=== PATIENT | female | born 2000 | race Caucasian/White ===

== ENCOUNTER 2018-03-11 07:02 | Emergency (ER) | payer MEDICAID ==
[2018-03-11] MEDS ORDERED: Ibuprofen 600 MG Tab PO ONE (07:44)
--- NOTE | 2018-03-11 07:53 | EDM.PDOC ---
ED HPI GENERAL MEDICAL PROBLEM - General Chief Complaint: Lower Extremity Injury/Pain Stated Complaint: RT FOOT Time Seen by Provider: 03/11/18 07:05 Source of Information: Reports: Patient History Limitations: Reports: No Limitations - History of Present Illness INITIAL COMMENTS - FREE TEXT/NARRATIVE: 18 y.o.w.f was walking on the beach without shoes and stepped "into something". She has pain at base of her right 4th toe since, especially with any kind of movement. She noticed some redness of her right forefoot as well. Pt is not able to apply weight onto her right forefoot. No F/C no N/V/D or any other acute med issues. Pt denies . BP 123/82 Pulse 81 RR 18 Pulse 98% on RA Temp 36.7 Onset Date: 03/10/18 Onset Time: 17:00 Duration: Day(s): Location: Reports: Lower Extremity, Right Quality: Reports: Ache, Burning, Stabbing Severity: Moderate Improves with: Reports: Rest Worsens with: Reports: Movement Context: Reports: Trauma (stepped on FB) Associated Symptoms: Reports: No Other Symptoms R foot Pain Score (Numeric/FACES): 6 - Related Data Allergies Allergy/AdvReac Type Severity Reaction Status Date / Time doxycycline Allergy Stomach Verified 03/11/18 07:42 Upset Home Meds: Home Meds Acetaminophen/HYDROcodone [[place] 325-5 MG] 1 - 2 tab PO Q6H PRN #10 tab [Rx] Acetaminophen/HYDROcodone [[place] 325-5 MG] 1 - 2 tab PO Q6H PRN #10 tab [Rx] Ciprofloxacin HCl [Cipro] 250 mg PO BID 7 Days #12 tablet 03/11/18 [Rx] metroNIDAZOLE [Flagyl] 500 mg PO Q8H #21 tab 03/11/18 [Rx] Past Medical History Gastrointestinal History: Reports: Irritable Bowel Syndrome Musculoskeletal History: Reports: Other (See Below) Other Musculoskeletal History: hx bilat plantar fasciatis bilat feet Neurological History: Reports: Migraines - Past Surgical History HEENT Surgical History: Reports: Adenoidectomy, Tonsillectomy GI Surgical History: Reports: Colonoscopy, EGD Musculoskeletal Surgical History: Reports: None Social & Family History - Family History Family Medical History: Noncontributory - Tobacco Use Smoking Status *Q: Never Smoker - Caffeine Use Caffeine Use: Reports: Coffee - Alcohol Use Days Per Week of Alcohol Use: 1 Number of Drinks Per Day: 1 Total Drinks Per Week: 1 - Recreational Drug Use Recreational Drug Use: No Review of Systems - Review of Systems Review Of Systems: See Below Constitutional: Reports: No Symptoms Eyes: Reports: No Symptoms Ears: Reports: No Symptoms Nose: Reports: No Symptoms Mouth/Throat: Reports: No Symptoms Respiratory: Reports: No Symptoms Cardiovascular: Reports: No Symptoms GI/Abdominal: Reports: No Symptoms Genitourinary: Reports: No Symptoms Musculoskeletal: Reports: Foot Pain Skin: Reports: Wound (punctured wound right forefoot between 4 and 5th toe) Neurological: Reports: No Symptoms Psychiatric: Reports: No Symptoms ED EXAM, GENERAL - Physical Exam Exam: See Below Exam Limited By: No Limitations General Appearance: Alert, WD/WN, Mild Distress Eye Exam: Bilateral Eye: Normal Inspection Ears: Normal External Exam Ear Exam: Bilateral Ear: Auricle Normal Nose: Normal Inspection Throat/Mouth: Normal Inspection Head: Atraumatic, Normocephalic Neck: Normal Inspection, Supple, Non-Tender, Full Range of Motion Respiratory/Chest: No Respiratory Distress, Lungs Clear, Normal Breath Sounds, No Accessory Muscle Use, Chest Non-Tender Cardiovascular: Normal Peripheral Pulses, Regular Rate, Rhythm, No Edema, No JVD , No Murmur, No Rub Peripheral Pulses: 1+: Carotid (R) GI/Abdominal: Normal Bowel Sounds, Soft, Non-Tender, No Organomegaly, No Distention, No Abnormal Bruit, No Mass, Pelvis Stable (Female) Exam: Deferred Rectal (Female) Exam: Deferred Back Exam: Normal Inspection, Full Range of Motion Extremities: Normal Capillary Refill, Other (punctured wound between 4/5 toes right foot) Neurological: Alert Psychiatric: Normal Affect, Normal Mood Skin Exam: Rash (right forefoot) Lymphatic: No Adenopathy Course - Vital Signs Text/Narrative:: 18 y.o.w.f was walking on the beach without shoes and stepped "into something". She has pain at base of her right 4th toe since, especially with any kind of movement. She noticed some redness of her right forefoot as well. Pt is not able to apply weight onto her right forefoot. No F/C no N/V/D or any other acute med issues. Pt denies . BP 123/82 Pulse 81 RR 18 Pulse 98% on RA Temp 36.7 Imaging: X Ray right foot: No radiopaque FB seen, No Fx 8.[address] Manriquez, surgeon: Will see thePt in the ED, performed procedure Impression: Punctured wound right forefoot with cellulitis Tx: Motrin for pain, Please see Dr. Manriquez's procedure note Plan: D/C with instructions given by Dr. Manriquez. Last Recorded V/S: Last Vital Signs Temp 36.9 C 03/11/18 09:15 Pulse 98 03/11/18 07:05 Resp 18 03/11/18 09:15 BP 121/74 03/11/18 09:15 Pulse Ox 99 03/11/18 09:15 - Orders/Labs/Meds Meds: Medications Discontinued Medications Generic Name Dose Route Start Last Admin Trade Name Freq PRN Reason Stop Dose Admin Ibuprofen 600 mg 03/11/18 07:44 03/11/18 08:06 Motrin PO 03/11/18 07:45 600 mg ONETIME ONE Administration Ondansetron HCl 4 mg 03/11/18 07:59 03/11/18 08:04 Zofran Odt PO 03/11/18 08:00 4 mg ONETIME ONE Administration Departure - Departure Time of Disposition: 10:00 Disposition: Home, Self-Care 01 Condition: Good Clinical Impression: Puncture wound of right foot Qualifiers: Encounter type: initial encounter Qualified Code(s): S91.331A - Puncture wound without foreign body, right foot, initial encounter - Discharge Information Prescriptions: Acetaminophen/HYDROcodone [[place] 325-5 MG] 1 - 2 tab PO Q6H PRN #10 tab PRN Reason: Pain Acetaminophen/HYDROcodone [[place] 325-5 MG] 1 - 2 tab PO Q6H PRN #10 tab PRN Reason: Pain Ciprofloxacin HCl [Cipro] 250 mg PO BID 7 Days #12 tablet metroNIDAZOLE [Flagyl] 500 mg PO Q8H #21 tab Instructions: Puncture Wound, Olka-mr-Caig, Ibuprofen tablets and capsules Referrals: Taras Manriquez MD [Physician] - (tomorrow for a dressing change ) Forms: ED Department Discharge, ED Return to Work/School Form Additional Instructions: Activity as tolerated Keep foot elevated today. Keep dressing clean & dry. Wear walking shoe when up. Cipro 500mg twice a day until gone Metronidazole 250mg every 8 hours until gone Ibuprofen 600mg every 6 hours as needed for mild to moderated pain with food. Hydrocodone/Acetaminophen 5/325 1-2 tablets every 6 hours as needed for severe pain. Follow up with Dr. Manriquez tomorrow, Thursday, March 12 at [facility] [place] at 4:15 for dressing change, make sure to bring insurance info to appt.
[2018-03-11] MEDS ORDERED: Ondansetron 4 MG Tab.DIS PO ONE (07:59)
--- NOTE | 2018-03-11 09:52 | PCM.CONS ---
H&P History of Present Illness - General Date of Service: 03/11/18 Source of Information: Patient - History of Present Illness Initial Comments - Free Text/Narative: Pt was swimming yesterday in a pond apparently stepped on a sharp object. Puncture wound at the base of the right 4th toe. Developed some swelling, erythema and pain. R foot Pain Score (Numeric/FACES): 6 - Related Data Allergies/Adverse Reactions: Allergies Allergy/AdvReac Type Severity Reaction Status Date / Time doxycycline Allergy Stomach Verified 03/11/18 07:42 Upset Home Medications: Home Meds Acetaminophen/HYDROcodone [[place] 325-5 MG] 1 - 2 tab PO Q6H PRN #10 tab [Rx] Acetaminophen/HYDROcodone [[place] 325-5 MG] 1 - 2 tab PO Q6H PRN #10 tab [Rx] Ciprofloxacin HCl [Cipro] 250 mg PO BID 7 Days #12 tablet 03/11/18 [Rx] metroNIDAZOLE [Flagyl] 500 mg PO Q8H #21 tab 03/11/18 [Rx] Past Medical History Gastrointestinal History: Reports: Irritable Bowel Syndrome Musculoskeletal History: Reports: Other (See Below) Other Musculoskeletal History: hx bilat plantar fasciatis bilat feet Neurological History: Reports: Migraines - Past Surgical History HEENT Surgical History: Reports: Adenoidectomy, Tonsillectomy GI Surgical History: Reports: Colonoscopy, EGD Musculoskeletal Surgical History: Reports: None Social & Family History - Family History Family Medical History: Noncontributory - Tobacco Use Smoking Status *Q: Never Smoker - Caffeine Use Caffeine Use: Reports: Coffee - Alcohol Use Days Per Week of Alcohol Use: 1 Number of Drinks Per Day: 1 Total Drinks Per Week: 1 - Recreational Drug Use Recreational Drug Use: No H&P Review of Systems - Review of Systems: Review Of Systems: See Below Musculoskeletal: Reports: Other (foot pain ) Skin: Reports: Wound Exam - Exam Exam: See Below - Vital Signs Vital Signs: Last Vital Signs Temp 36.8 C 03/11/18 07:05 Pulse 98 03/11/18 07:05 Resp 18 03/11/18 08:13 BP 117/72 03/11/18 08:13 Pulse Ox 100 03/11/18 08:13 Weight: 68.039 kg - Exam Extremities: Other (right foot. base of the right 4th toe small punctate wound. swelling and tenderness with erythema noted. ) Consult PN Assessment/Plan (1) Puncture wound of toe of right foot SNOMED Code(s): 969941056 Code(s): S91.139A - PNCTR W/O FB OF UNSP TOE(S) W/O DAMAGE TO NAIL, INIT Current Visit: Yes Qualifiers: Encounter type: initial encounter Qualified Code(s): S91.139A - Puncture wound without foreign body of unspecified toe(s) without damage to nail, initial encounter Problem List Initiated/Reviewed/Updated: Yes Plan: xray shows no foreign body. recommend an I+D with packing. procedure and risks explained to the pt. she expressed understanding and asks us to proceed.
--- NOTE | 2018-03-11 09:54 | PCM.OPNOTE ---
- General Post-Op/Procedure Note Date of Surgery/Procedure: 03/11/18 Operative Procedure(s): I+D of right 4th toe Findings: no foreign body. some injured tissue noted wound was packed open Pre Op Diagnosis: puncture wound of right 4th toe Post-Op Diagnosis: Same Anesthesia Technique: Local (4 ml 2 % lido) Primary Surgeon: Taras Manriquez Pathology: none Complications: None Condition: Good Free Text/Narrative:: see dictation
--- NOTE | 2018-03-11 10:31 | OR ---
DATE OF OPERATION: 03/11/2018 SURGEON: Taras Manriqeuz MD PROCEDURE PERFORMED: I and D of puncture wound, right fourth toe. PREOPERATIVE DIAGNOSIS: Puncture wound, right fourth toe. POSTOPERATIVE DIAGNOSIS: Puncture wound, right fourth toe. INDICATIONS FOR PROCEDURE: This 18-year-old white female was apparently swimming in a pond yesterday evening, sustained a puncture wound to the plantar surface of her right toe. Today, she developed a marked amount of pain, erythema, and tenderness. X-ray demonstrates no evidence of foreign body; however, I felt an exploration with packing was indicated. DESCRIPTION OF OPERATION: After prepping the wound with Betadine, it was then infiltrated with 2% lidocaine, approximately 4 mL. The puncture wound was opened using a hemostat. There was no evidence of a foreign body; however, there was some necrotic tissue that was noted, and this was gently debrided with a pair of forceps. The wound was then packed with Nu Gauze and wrapped. The patient tolerated the procedure well. She will be sent home on a prescription for ciprofloxacin and Flagyl. She reports that her tetanus shot is up to date. She will see me tomorrow in the clinic for a dressing change. /[id number] /DAVL
== END 2018-03-11 09:37 | disposition home or self-care (01) ==
LOC: FB.ED 07:02
DX: S91.331A Puncture wound without foreign body, right foot, initial encounter (principal); L03.115 Cellulitis of right lower limb; Z88.8 Allergy status to other drugs, medicaments and biological substances; Z79.899 Other long term (current) drug therapy; W45.8XXA Other foreign body or object entering through skin, initial encounter
CPT/HCPCS: 10061; 73630; 87070; 87077; 87186; 87205; 99283; A9270; 10160

== ENCOUNTER 2018-03-12 20:41 | Emergency (ER) | payer MEDICAID ==
--- NOTE | 2018-03-12 22:25 | EDM.PDOC ---
ED HPI GENERAL MEDICAL PROBLEM - General Chief Complaint: Lower Extremity Injury/Pain Stated Complaint: RT TOE INJURY Time Seen by Provider: 03/12/18 20:50 Source of Information: Reports: Patient, Family History Limitations: Reports: No Limitations - History of Present Illness INITIAL COMMENTS - FREE TEXT/NARRATIVE: 18 y.o.w.f with a punctured wound without FB in her right foot was seen here in the ed bythe surgeon and sent home with Abx, pain meds and crutches. Pt came to the ed today because her right foot is more swollen. She denied any new trauma since she was seen in the surgical clinic today. She walked on her foot today because her crutches were not available for a moment. Main complaint is right foot swelling. No other acute medical issues. BP 137/73 pulse 76 RR 16 Pulse ox 100% on RA Temp 36.6 Onset Date: 03/12/18 Onset Time: 16:00 Duration: Hour(s):, Getting Worse, Intermittent Location: Reports: Lower Extremity, Right Quality: Reports: Ache, Burning, Dull, Pressure Severity: Moderate Improves with: Reports: Rest Worsens with: Reports: Movement Context: Reports: Trauma Associated Symptoms: Reports: No Other Symptoms Rt foot Pain Score (Numeric/FACES): 6 - Related Data Allergies Allergy/AdvReac Type Severity Reaction Status Date / Time doxycycline Allergy Stomach Verified 03/11/18 07:42 Upset Home Meds: Home Meds Acetaminophen/HYDROcodone [[place] 325-5 MG] 1 - 2 tab PO Q6H PRN #10 tab [Rx] Acetaminophen/HYDROcodone [[place] 325-5 MG] 1 - 2 tab PO Q6H PRN #10 tab [Rx] Ciprofloxacin HCl [Cipro] 250 mg PO BID 7 Days #12 tablet 03/11/18 [Rx] metroNIDAZOLE [Flagyl] 500 mg PO Q8H #21 tab 03/11/18 [Rx] Past Medical History Gastrointestinal History: Reports: Irritable Bowel Syndrome Musculoskeletal History: Reports: Other (See Below) Other Musculoskeletal History: hx bilat plantar fascitis bilat feet Neurological History: Reports: Migraines - Past Surgical History HEENT Surgical History: Reports: Adenoidectomy, Tonsillectomy GI Surgical History: Reports: Colonoscopy, EGD Musculoskeletal Surgical History: Reports: None Other Musculoskeletal Surgeries/Procedures:: Rt toe surgery Social & Family History - Family History Family Medical History: Noncontributory - Tobacco Use Smoking Status *Q: Never Smoker - Caffeine Use Caffeine Use: Reports: Coffee - Recreational Drug Use Recreational Drug Use: No Review of Systems - Review of Systems Review Of Systems: See Below Constitutional: Reports: No Symptoms Eyes: Reports: No Symptoms Ears: Reports: No Symptoms Nose: Reports: No Symptoms Mouth/Throat: Reports: No Symptoms Respiratory: Reports: No Symptoms Cardiovascular: Reports: No Symptoms GI/Abdominal: Reports: No Symptoms Genitourinary: Reports: No Symptoms Musculoskeletal: Reports: Foot Pain Skin: Reports: No Symptoms Neurological: Reports: No Symptoms Psychiatric: Reports: No Symptoms ED EXAM, GENERAL - Physical Exam Exam: See Below Exam Limited By: No Limitations General Appearance: Alert, WD/WN, Mild Distress Eye Exam: Bilateral Eye: Normal Inspection Ears: Normal External Exam Ear Exam: Bilateral Ear: Auricle Normal Nose: Normal Inspection, Normal Mucosa, No Blood Throat/Mouth: Normal Inspection, Normal Lips, Normal Teeth, Normal Gums, Normal Voice, No Airway Compromise Head: Atraumatic, Normocephalic Neck: Normal Inspection, Supple, Non-Tender, Full Range of Motion Respiratory/Chest: No Respiratory Distress, Lungs Clear, Normal Breath Sounds, No Accessory Muscle Use, Chest Non-Tender Cardiovascular: Normal Peripheral Pulses, Regular Rate, Rhythm, No Edema Peripheral Pulses: 1+: Carotid (L) GI/Abdominal: Normal Bowel Sounds, Soft, Non-Tender, No Organomegaly (Female) Exam: Deferred Rectal (Female) Exam: Deferred Back Exam: Normal Inspection, Full Range of Motion Extremities: Limited Range of Motion (right foot), Increased Warmth, Redness Neurological: Alert, Oriented, CN II-XII Intact, Normal Cognition, Abnormal Gait (right foot pain/swelling) Psychiatric: Normal Affect Skin Exam: Warm, Dry, Intact, Normal Color, Rash (right foot) Lymphatic: No Adenopathy Course - Vital Signs Text/Narrative:: 18 y.o.w.f with a punctured wound without FB in her right foot was seen here in the ed bythe surgeon and sent home with Abx, pain meds and crutches. Pt came to the ed today because her right foot is more swollen. She denied any new trauma since she was seen in the surgical clinic today. She walked on her foot today because her crutches were not available for a moment. Main complaint is right foot swelling. No other acute medical issues. BP 137/73 pulse 76 RR 16 Pulse ox 100% on RA Temp 36.6 PE: WNWD W F with right foot swelling and redness Labs: CBC/BMP WNL Imaging: Not indicated Impression: S/P Punctured wound right foot/muscular skeletal pain/swelling right foot. 10.25 pm Consultation: Dr. Manriquez, Surgeon: F/U in clinic this Thursday as scheduled Tx: Pt took her home meds in the ED Reexam: Improved Plan: D/C with instructions Last Recorded V/S: Last Vital Signs Temp 37.3 C 03/12/18 22:45 Pulse 82 03/12/18 22:45 Resp 16 03/12/18 22:45 BP 122/68 03/12/18 22:45 Pulse Ox 100 03/12/18 22:45 - Orders/Labs/Meds Orders: Active Orders 24 hr Category Date Time Status CULTURE BLOOD [BC] Urgent Lab 03/12/18 21:15 Received CULTURE BLOOD [BC] Urgent Lab 03/12/18 21:20 Received Blood Culture x2 Reflex Set [OM.PC] Urgent Oth 03/12/18 21:00 Ordered Labs: Laboratory Tests 03/12/18 03/12/18 03/12/18 Range/Units 21:15 21:15 21:15 WBC 10.7 (4.5-12.0) X10-3/uL RBC 4.44 (3.23-5.20) x10(6)uL Hgb 13.7 (11.5-15.5) g/dL Hct 40.2 (30.0-51.3) % MCV 90.6 (80-96) fL MCH 30.9 (27.7-33.6) pg MCHC 34.1 (32.2-35.4) g/dL RDW 12.6 (11.5-15.5) % Plt Count 223 (125-369) X10(3)uL MPV 7.9 (7.4-10.4) fL Neut % (Auto) 65.2 (46-82) % Lymph % (Auto) 23.2 (13-37) % [place] % (Auto) 9.4 (4-12) % Eos % (Auto) 2 (1.0-5.0) % Baso % (Auto) 1 (0-2) % Neut # (Auto) 6.9 (1.6-8.3) # Lymph # (Auto) 2.5 (0.6-5.0) # [place] # (Auto) 1.0 (0.0-1.3) # Eos # (Auto) 0.2 (0.0-0.8) # Baso # (Auto) 0.1 (0.0-0.2) # Sodium 140 (135-145) mmol/L Potassium 3.6 (3.5-5.3) mmol/L Chloride 105 (100-110) mmol/L Carbon Dioxide 27 (21-32) mmol/L BUN 14 (7-18) mg/dL Creatinine 0.8 (0.55-1.02) mg/dL Est Cr Clr Drug Dosing 100.94 mL/min Estimated GFR (MDRD) > 60 (>60) BUN/Creatinine Ratio 17.5 (9-20) Glucose 98 (80-116) mg/dL Lactic Acid 0.8 (0.4-2.2) mmol/L Calcium 8.6 (8.6-10.2) mg/dL Departure - Departure Time of Disposition: 22:27 Disposition: Home, Self-Care 01 Condition: Good Clinical Impression: Puncture wound without foreign body Right foot sprain Qualifiers: Encounter type: subsequent encounter Qualified Code(s): S93.601D - Unspecified sprain of right foot, subsequent encounter - Discharge Information Instructions: Foot Sprain Referrals: PCP,Not In Area [Primary Care Provider] - Forms: ED Department Discharge Additional Instructions: Please continue your meds, please elevate your right foot, use crutches, please f/u with Dr. Manriquez as scheduled this Thursday, come back if your symptoms get worse acutely - My Orders Last 24 Hours: My Active Orders 03/12/18 21:00 Blood Culture x2 Reflex Set [OM.PC] Urgent 03/12/18 21:15 CULTURE BLOOD [BC] Urgent 03/12/18 21:20 CULTURE BLOOD [BC] Urgent - Assessment/Plan Last 24 Hours: My Active Orders 03/12/18 21:00 Blood Culture x2 Reflex Set [OM.PC] Urgent 03/12/18 21:15 CULTURE BLOOD [BC] Urgent 03/12/18 21:20 CULTURE BLOOD [BC] Urgent
== END 2018-03-12 22:50 | disposition home or self-care (01) ==
LOC: FB.ED 20:41
DX: S91.331A Puncture wound without foreign body, right foot, initial encounter (principal); S93.601D Unspecified sprain of right foot, subsequent encounter; R21 Rash and other nonspecific skin eruption; Z88.1 Allergy status to other antibiotic agents; X58.XXXA Exposure to other specified factors, initial encounter
CPT/HCPCS: 36415; 80048; 83605; 85025; 87040; 99283